=== PATIENT | male | born 2000 | race Caucasian/White ===

== ENCOUNTER 2023-02-09 17:33 | Emergency (ER) | payer OTHER, BC ==
[2023-02-09] MEDS ORDERED: Ibuprofen 800 MG TAB ONE (17:44)
[2023-02-09] MEDS ORDERED: Cyclobenzaprine 10 MG TAB ONE (17:46)
== END 2023-02-09 18:11 | disposition home or self-care (01) ==
LOC: BURERS 17:33
DX: S16.1XXA Strain of muscle, fascia and tendon at neck level, initial encounter (principal); S39.012A Strain of muscle, fascia and tendon of lower back, initial encounter; V83.5XXA Driver of special industrial vehicle injured in nontraffic accident, initial encounter
CPT/HCPCS: 99283